=== PATIENT | female | born 1970 | race Caucasian/White ===

== ENCOUNTER 2021-06-06 12:47 | Outpatient (CLI) | payer OTHER, SELFPAY ==
--- NOTE | ~2021-06-06 | CT_ITS ---
EXAMINATION: CT diagnostic chest wo con DATE: 06/06/2021 13:17 INDICATION: Mediastinal mass, adenopathy, history of ovarian cancer TECHNIQUE: Computed tomography (CT) of the chest was performed without intravenous contrast. The dose -length product (DLP) was 357.19 mGy-cm. Automated exposure control and iterative reconstruction tech [employer] were employed. COMPARISON: 06/13/2018 FINDINGS: A 3.2 x 2.6 cm right lower paratracheal lymph node previously measured 2.8 x 1.9 cm. The ly mph node demonstrates a small amount of amorphous calcification. This is contiguous with the previous ly described precarinal lymph node. A partially calcified right hilar lymph node measures 1.9 x 1.7 c m, not significantly changed. No new thoracic lymphadenopathy is identified. There is a stable 3 mm n odule of the right upper lobe. No new pulmonary nodules are identified. The lungs are free of focal a irspace opacities. There is no pleural effusion or pneumothorax. The heart size is normal. There is m ild thoracic spondylosis. IMPRESSION: 1. Metastatic mediastinal lymphadenopathy with slight increase in size but overall very little change in the three year interval since the comparison examination. Slight decrease in metastatic right hil ar lymphadenopathy. Reviewed, dictated and finalized at location A. IMPRESSION: 1. Metastatic mediastinal lymphadenopathy with slight increase in size but over all very little change in the three year interval since the comparison examinat ion. Slight decrease in metastatic right hilar lymphadenopathy.
== END 2021-06-06 12:48 | disposition home or self-care (01) ==
LOC: ANHIMG 12:50
PROVIDERS: PCP Internal Medicine; Visit Provider Internal Medicine Medical Oncology
DX: R59.9 Enlarged lymph nodes, unspecified (principal); J98.59 Other diseases of mediastinum, not elsewhere classified; R91.1 Solitary pulmonary nodule
CPT/HCPCS: 71250

== ENCOUNTER 2021-06-16 14:31 | Outpatient (CLI) | payer OTHER, SELFPAY ==
--- NOTE | ~2021-06-16 | MM_ITS ---
EXAMINATION: MM screening henrik BI w macarena HISTORY: Screening TECHNIQUE: Craniocaudal and mediolateral oblique 3-D tomosynthesis images were obtained and synthetic 2-D images were generated. CAD analysis was submitted and interpreted. COMPARISON: Comparison to multiple prior studies sequentially, with oldest reviewed study dated 03/17. BREAST PARENCHYMAL COMPOSITION: There are scattered areas of fibroglandular density. FINDINGS: There is no evidence of suspicious mass, calcification, or architectural distortion to sugg est malignancy in either breast. There has been no suspicious interval change. IMPRESSION: 1. No mammographic evidence of malignancy. 2. Recommend routine screening mammography in one year. BI-RADS Category 1: Negative Reviewed, dictated and finalized at location A.
== END 2021-06-16 14:32 | disposition home or self-care (01) ==
PROVIDERS: PCP Internal Medicine Medical Oncology; Visit Provider Internal Medicine Medical Oncology
DX: Z12.31 Encounter for screening mammogram for malignant neoplasm of breast (principal)
CPT/HCPCS: 77063; 77067

== ENCOUNTER 2021-12-05 13:31 | Outpatient (CLI) | payer OTHER, SELFPAY ==
--- NOTE | ~2021-12-05 | CT_ITS ---
EXAMINATION:CT diagnostic chest w con DATE: 12/05/2021 14:04 INDICATION: Lymphadenopathy. Ovarian cancer. TECHNIQUE: Computed tomography (CT) of the chest was performed with 75 mL Omnipaque 350 intravenous c ontrast. Automated exposure control and iterative reconstruction technique were employed. The dose-le ngth product (DLP) was 370.41 mGy-cm. COMPARISON: Chest CT 06/06/2021 FINDINGS: The lungs demonstrate mild atelectasis. There is a 3 mm nodule in right upper lobe. No pleu ral effusion. There are nodules in the thyroid measuring up to 12 mm, likely not clinically significa nt. The heart size is normal. No pericardial effusion. There is partially calcified right hilar and r ight paratracheal lymphadenopathy. For example, a right paratracheal deshaun mass measures 3.7 x 2.4 cm , stable from 06/06/2021. There is diffuse hepatic steatosis. There is mild thoracic spondylosis. IMPRESSION: 1. Stable partially calcified mediastinal and right hilar lymphadenopathy, consistent with metastatic disease. Reviewed, dictated and finalized at location A. IMPRESSION: 1. Stable partially calcified mediastinal and right hilar lymphadenopathy, cons istent with metastatic disease.
== END 2021-12-05 13:32 | disposition home or self-care (01) ==
PROVIDERS: Visit Provider Internal Medicine Medical Oncology
DX: R59.9 Enlarged lymph nodes, unspecified (principal); Z85.43 Personal history of malignant neoplasm of ovary
CPT/HCPCS: 71260; Q9967

== ENCOUNTER 2022-06-15 10:19 | Outpatient (CLI) | payer OTHER, SELFPAY ==
--- NOTE | ~2022-06-15 | CT_ITS ---
EXAMINATION: CT diagnostic chest wo con DATE: 06/15/2022 10:50 INDICATION: History of ovarian cancer TECHNIQUE: Computed tomography (CT) of the chest was performed without intravenous contrast. The dose -length product (DLP) was 334.95 mGy-cm. Automated exposure control and iterative reconstruction tech nique were employed. COMPARISON: 12/05/2021 FINDINGS: There is a stable 3 mm nodule of the right upper lobe. There appear to be small, stable per ibronchial nodules in the right upper lobe on images 36 and 37 which measure 5 mm and 4 mm, respectiv nikhil. There is mild dependent atelectasis. No pleural effusion or pneumothorax. A 3.6 x 2.5 cm partial ly calcified right peritracheal lymph node mass is not significantly changed. Right hilar lymphadenop athy is also stable. There is mild thoracic spondylosis. IMPRESSION: 1. Stable mediastinal and right hilar lymphadenopathy, consistent with metastatic disease. Reviewed, dictated and finalized at location A. IMPRESSION: 1. Stable mediastinal and right hilar lymphadenopathy, consistent with metastat ic disease.
== END 2022-06-15 10:20 | disposition home or self-care (01) ==
PROVIDERS: Visit Provider Internal Medicine Medical Oncology
DX: Z85.43 Personal history of malignant neoplasm of ovary (principal); R59.0 Localized enlarged lymph nodes
CPT/HCPCS: 71250

== ENCOUNTER 2022-12-11 07:22 | Outpatient (CLI) | payer OTHER, SELFPAY ==
--- NOTE | ~2022-12-11 | CT_ITS ---
EXAMINATION: CT diagnostic chest w con DATE: 12/11/2022 07:54 INDICATION: Lymphadenopathy of the chest and axilla, history of ovarian cancer TECHNIQUE: Transaxial computed tomographic images of the chest were obtained after the administration of 75 cc of Omnipaque 350 intravenous contrast. The dose-length product (DLP) was 163.85 mGy-cm. Ite rative reconstruction was used. COMPARISON: 06/15/2022 FINDINGS: Again seen is a stable 3 mm nodule of the right upper lobe. The previously described peribr onchial nodules of the right upper lobe are stable (image 48). No pleural effusion or pneumothorax. T here is mild dependent atelectasis. Partially calcified right paratracheal and right hilar lymphadeno lisa is stable. The heart size is normal. There is mild thoracic spondylosis. Cholelithiasis is note d. IMPRESSION: 1. Stable mediastinal and right hilar lymphadenopathy, consistent with metastatic disease. Reviewed, dictated and finalized at location B. IMPRESSION: 1. Stable mediastinal and right hilar lymphadenopathy, consistent with metastat ic disease.
== END 2022-12-11 07:23 | disposition home or self-care (01) ==
PROVIDERS: Visit Provider Internal Medicine Medical Oncology
DX: R59.9 Enlarged lymph nodes, unspecified (principal); J98.59 Other diseases of mediastinum, not elsewhere classified
CPT/HCPCS: 71260; Q9967

== ENCOUNTER 2023-12-10 08:35 | Outpatient (CLI) | payer OTHER, SELFPAY ==
--- NOTE | ~2023-12-10 | CT_ITS ---
EXAMINATION:CT diagnostic chest w con DATE: 12/10/2023 09:09 INDICATION: Ovarian cancer. TECHNIQUE: Computed tomography (CT) of the chest was performed with 75 mL Omnipaque 350 intravenous c ontrast. Automated exposure control and iterative reconstruction technique were employed. The dose-le ngth product (DLP) was 209.74 mGy-cm. COMPARISON: Chest CT 12/11/2022, 12/05/21 FINDINGS: The lungs demonstrate mild atelectasis. No pleural effusion. Partially calcified right sarah r and mediastinal lymph nodes are noted. For example, a right paratracheal node measures 3.2 x 2.2 cm . There are nodules in the thyroid measuring up to 12 mm, likely not clinically significant. There is thymic hyperplasia in the anterior mediastinum. There is mild thoracic spondylosis. IMPRESSION: 1. Stable partially calcified mediastinal and right hilar lymphadenopathy, consistent with metastatic disease. Reviewed, dictated and finalized at location A. IMPRESSION: 1. Stable partially calcified mediastinal and right hilar lymphadenopathy, cons istent with metastatic disease.
== END 2023-12-10 08:36 | disposition home or self-care (01) ==
PROVIDERS: Visit Provider Internal Medicine Medical Oncology
DX: R59.9 Enlarged lymph nodes, unspecified (principal); Z85.43 Personal history of malignant neoplasm of ovary; J98.59 Other diseases of mediastinum, not elsewhere classified
CPT/HCPCS: 71260; Q9967

== ENCOUNTER 2024-12-08 07:35 | Outpatient (CLI) | payer OTHER, SELFPAY ==
--- NOTE | ~2024-12-08 | CT_ITS ---
Clinical Indication: Ovarian cancer CT Scan of the Chest with Contrast: Technique: Contiguous sections were acquired throughout the chest after intravenous administration of 100 cc of Omnipaque 350. Dose reduction technique was used on this scan by utilizing automated expos ure control and iterative reconstruction technique. The dose-length product (DLP) was 272.44 mGy-cm. COMPARISON: 12/10/2023 Findings: Stable enlarged mediastinal and right hilar lymph nodes, most prominent at the right paratracheal str ipe. No axillary lymphadenopathy. There is no filling defect in the pulmonary arterial tree to sugges t pulmonary embolus. There is no evidence of aortic dissection or aneurysm. There is no evidence of pleural or pericardial effusion. The lungs are clear. No pulmonary nodules or infiltrates are noted. Images through the upper abdomen reveal probable diffuse hepatic steatosis. Impression: Stable mediastinal and right hilar lymphadenopathy. Probable diffuse hepatic steatosis. Reviewed, dictated and finalized at [facility]. Impression: Stable mediastinal and right hilar lymphadenopathy. Probable diffuse hepatic steatosis.
--- OUTSIDE RECORDS SUMMARY | 2024-12-08 07:37 | XMS_ITS | Encounter Summary ---
Author Organization [facility] Address [address] [facility] [place] [address] Care Team Providers Care High School Computer Science Teacher Name Role Phone Claudia Leigh Primary Care Provider Reason for Referral * Consultation (Routine) - Closed Specialty Diagnoses / Procedures Referred By Opal hollins Referred To Contact Endocrinology Diagnoses Multinodular thyroid Anti-TPO antibodies present Thyromegaly Mediastinal adenopathy Claudia Leigh APRN-CNP [address] [place] [address] [place] [address] Referral ID Status Reason Start Date Expiration Date V isits Requested Visits Authorized [id number] Closed Specialty Services Required 07/12/2024 07/12/2025 1 1 ORATOR LOADER Encounter Details Date Type Department Care Team (Latest Contact Info) Description 07/12/2024 Transcribe Orders [facility] - Centralized Scheduling [address] [place] [address] Claudia Leigh APRN-CNP [address] [place], [place] [id number] Multinodular thyroid ; Anti-TPO antibodies present; Thyromegaly; Mediastinal adenopathy Social History Tobacco Use Types Packs/Day Years Used Date Smoking Tobacco: Never Alcohol Use Standard Drinks/Week Comments Yes 0 (1 standard drink = 0.6 oz pur e alcohol) rare Sex and Gender Information Value Date Recorded Sex Assigned at Not on file Gender Identity Not on file Sexual Orientation Not on file documented as of this encounter Plan of Treatment Scheduled Referrals Name Type Priority Associated Diagnoses Order Schedule AMB REFERRAL TO ENDOCRINOLOGY Outpatient Referral Routine Multinodular thyroid Anti-TPO antibodies present Thyromegaly Mediastinal adenopathy 1 Occurrences starting 07/12/2024 until 07/12/2025 documented as of this encounter Visit Diagnoses Diagnosis Multinodular thyroid- Primary Nontoxic multinodular goiter Anti-TPO antibodies present Other and unspecified nonspecific immunological findings Thyromegaly Goiter, unspecified Mediastinal adenopathy Enlargement of lymph nodes documented in this encounter Care Teams High [employer] Computer Science Teacher Relationship Specialty Start Date End Date Claudia Leigh, BURNISHING MACHINE OPERATOR-CONDUIT WORKER [address] [facility] [address] [place] [id number] PCP - General Nurse Practitioner 07/19/24 documented as of this encounter
--- OUTSIDE RECORDS SUMMARY | 2024-12-08 07:37 | XMS_ITS | Encounter Summary ---
Author Organization [facility] Address [address] [place] [address] Care Team Providers Care Manufacturing Systems Engineer Name Role Phone Claudia Leigh POWER SHOVEL MECHANIC-SURGICAL SPECIALIST Primary Care Provider Encounter Details Date Type Department Care Team (Late st Contact Info) Description 07/19/2024 Telephone [facility] - Endocrinology [address] [place] [address], [place] [id number] Jaskaran Pedro MD [address] [place] [address] [place], [place] [id number] Social History Tobacco Use Types Packs/Day Years Used Date Smoking Tobacco: Never Alcohol Use Standard Drinks/Week Comments Yes 0 (1 standard drink = 0.6 oz pur e alcohol) rare Sex and Gender Information Value Date Recorded Sex Assigned at Not on file Gender Identity Not on file Sexual Orientation Not on file documented as of this encounter Miscellaneous Notes * Telephone Encounter - Jamila Adams - 07/19/2024 12:02 PM CST Current Provider: Dr. Jaskaran Pedro Reason for Call: Ms. Cora Mcfarland has NEW PT Referral for: Diagnosis E04.2 (ICD-10-CM) - Multinodular thyroid R76.8 (ICD-10-CM) - Anti-TPO antibodies present E01.0 (ICD-10-CM) - Thyromegaly R59.0 (ICD-10-CM) - Mediastinal adenopathy Please advise. If she doesn't need scheduling w/ you after you peruse her chart, I will schedule. Thanks much for responding. Patient Call Back Number: [phone] R RECORD CLERK documented in this encounter Plan of Treatment Not on file documented as of this encounter Visit Diagnoses Not on filedocumented in this encounter Care Teams Manufacturing Systems Engineer Relationship Specialty Start Date End Date Claudia Leigh, LUNA-SURGICAL SPECIALIST [address] [place] [address] PCP - General Nurse Practitioner 07/19/24 documented as of this encounter
--- OUTSIDE RECORDS SUMMARY | 2024-12-08 07:37 | XMS_ITS | Referral Summary ---
Author Organization [facility] Address [address] [place] [address] Phone Care Team Providers Care Air Conditioning Manager Name Role Phone Darwin Colunga DO Unavailable [phone] Karis Tripp MD Unavailable Claudia Leigh NP Primary Care Provider [phone] Allergies No known active allergies Medications cholecalciferol , vitamin D3, 2,000 unit/drop drops Take by mouth. 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 Never 03/24/2023 Average Number of Drinks Not on file 023 Q3: How often do you have si x or more drinks on one occasion? 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 SHOP SUPERVISOR Gender Identity Not on file Sexual Orientation Not on file Last Filed Vital Signs Vital Sign Reading Time Taken Comments Blood Pressure 142/79 12/17/2023 10:21 AM CDT Pulse 60 12/17/2023 10:21 AM CDT Temperature 36.4 C (97.5 F) 12/17/2023 10:21 AM CDT Respiratory Rate 17 12/17/2023 10:2 1 AM CDT Oxygen Saturation 98% 12/17/2023 10: 21 AM CDT Inhaled Oxygen Concentration - - Weight 73.9 kg (162 lb 14.7 oz) 024 10:21 AM CDT Height 154.9 cm (5' 1 ) 12/18/2022 10:1 3 AM CDT Body Mass Index 30.78 12/18/2022 10:13 AM CDT Plan of Treatment Not on file Procedures Procedure Name Priority Date/Time Associated Diagnosis Comments COLONOSCOPY 03/24/2023 8:25 AM CDT from Last 3 Months or Most Recently Relevant to Health Maintenance Results * COLONOSCOPY (03/24/2023 8:25 AM CDT) Anatomical Region Laterality Modality Other Narrative Procedure Note Karis Tripp MD - 03/24/2023 8:25 AM CDT [facility] Patient Name: Cora Collins Procedure Date: 03/24/2023 8:25 AM Date of : 1970 Admit Type: Outpatient Age: 53 Gender: Female Attending MD: Karis Tripp M.D. Room: [facility] ENDOSCOPY ROOM 05 Note Status: Finalized Procedure: Colonoscopy Indications: Positive Cologuard test Referring MD: Providers: Karis Tripp M.D. Medicines: See the Anesthesia note for documentation of the administered medications Complications: No immediate complications. Estimated Blood Loss: Estimated blood loss was minimal. Procedure: The benefits, risks and alternatives of theprocedure and sedation were discussed and informed consentwas obtained. All questions were answered. Please referto the signed informed consent document in the medical record. The scope was passed under direct vision.The PCF-H180AL colonoscope was introduced through theanus and advanced to the cecum, identified byappendiceal orifice and ileocecal valve. The colonoscopy was performed without difficulty. The patient tolerated the procedure well. The quality of the bowel preparation was adequate. Findings: The digital rectal exam findings include a posterior based polyp. Two polyps were found in the cecum. The polyps were 5 mm in size.These polyps were removed with a hot biopsy forceps. Resection andretrieval were complete. A 10 mm polyp was found in the transverse colon. The polyp wasremoved with a hot biopsy forceps. Resection and retrieval were complete. A 25 mm polyp was found in the rectum. The polyp was removed with ahot snare. Resection and retrieval were complete. Impression: - A posterior based polyp. found on digital rectal exam. - Two 5 mm polyps in the cecum, removed with a hot biopsy forceps. Resected and retrieved. - One 10 mm polyp in the transverse colon, removed with a hot biopsy forceps. Resected andretrieved. - One 25 mm polyp in the rectum, removed with a hot snare. Resected and retrieved. Recommendation: - No aspirin, ibuprofen, naproxen, or other non-steroidal anti-inflammatory drugs for 5 days. - Repeat colonoscopy date to be determined after pending pathology results are reviewed for surveillance. Karis Tripp M.D. Karis Tripp M.D. 03/24/2023 9:09:10 AM . Number of Addenda: 0 Note Initiated On: 03/24/2023 8:25 AM Recognized by the [employer] for promoting quality in endoscopy Karis Tripp MD ENDOSCOPY PROCEDURES Final Resul t from Last 3 Months or Most Recently Relevant to Health Maintenance Insurance [facility] [place] [address] Care Teams Air Conditioning Manager Relationship Specialty Start Date End Date Claudia Leigh NP [address] [address] PCP - General Nurse Practitioner 12/17/23 Darwin Colunga DO [facility] [address] Medical Oncologist/Junior Technical Writer Hematology and Oncology 04/07/18 Karis Tripp MD [facility] [address] Consulting Physician General Surgery 01/22/23
--- OUTSIDE RECORDS SUMMARY | 2024-12-08 07:37 | XMS_ITS | Clinical Summary ---
Author Organization [facility] Address [address] [place] [address] Care Team Providers Care Rail Operator Name Role Phone Claudia Leigh PROFESSIONAL TUTOR-NAME PLATE STAMPING MACHINE OPERATOR Primary Care Provider Source Comments [facility],non-owned Affiliates and Associated Physician Practices is amultiple site organization consisting of ambulatory clinics and hospital sitesin [place], [place], [place] and [place]. This disclosure is being madepursuant to the Care Everywhere program and may not contain all information available regarding this patient. Last updated 18.[facility] Allergies No known active allergies Medications * Be aware that medications may not be up to date on this document. Alwaysverify current medications with the patient. Medication Sig Dispensed Refills Start Date End Date Status oxycodone-acetaminop hen (PERCOCET) 5-325 MG tablet Take 1-2 Tabs by mouth every 4 hours as needed for Pain. RUSS# [id number] 60 Tab 0 11/07/2010 Active ibuprofen (MOTRIN) 600 MG tablet Take 1 Tab by mouth every 6 hours as needed for Pain. 60 Tab 0 11/07/2010 Active docusate sodium (COLACE) 100 MG capsule Take 1 Cap by mouth 2 times daily. 120 Cap 1 11/07/2010 Active Nystatin & Diaper Rash Product 010889 UNIT/GM KIT 1 g by Apply externally route daily. 200 Kit grams 11/07/2010 Active Active Problems Problem Noted Date Diagnosed Date Shortness of breath 10/30/2010 Family History Medical History Relation Name Comments Cancer Father throat Cancer Paternal Grandfather Endometriosis Sister Relation Name Status Comments Father Paternal Grandfather Sister Social History Tobacco Use Types Packs/Day Years [...] Sign Reading Time Taken Comments Blood Pressure 136/75 11/07/2010 2:32 AM SUPERVISOR PAINTING DEPARTMENT Pulse 87 11/07/2010 2:32 AM SUPERVISOR PAINTING DEPARTMENT Temperature 37.1 C (98.8 F) 11/07/2010 2:32 AM SUPERVISOR PAINTING DEPARTMENT Respiratory Rate 20 11/07/2010 2:32 AM SUPERVISOR PAINTING DEPARTMENT Oxygen Saturation 93% 11/07/2010 2:32 AM SUPERVISOR PAINTING DEPARTMENT Inhaled Oxygen Concentration - - Weight 98.7 kg (217 lb 9 oz) 11/02/2010 1:24 PM SUPERVISOR PAINTING DEPARTMENT Height 157.5 cm (5' 2 ) 11/02/2010 1:24 PM SUPERVISOR PAINTING DEPARTMENT Body Mass Index 39.79 11/02/2010 1:24 PM SUPERVISOR PAINTING DEPARTMENT Plan of Treatment Health Maintenance Due Date Last Done Comments COLOGUARD (AGES 45-75) - COL ON CA SCREENING 1970 COLON MONITORING 1970 COLONOSCOPY - COLON CA SCREENING 1968 CT COLONOGRAPHY - COLON CA SCREENING 1970 Colorectal Cancer Screening 1970 FIT - COLON CA SCREENING 1970 FLEX SIG - COLON CA SCREENING 1970 PAP SMEAR 1970 HIV SCREENING 01/13/1983 HEPATITIS C SCREENING 01/09/1986 DTAP/TDAP/TD VACCINES (1 - Tdap) 01/13/1987 HEPATITIS B VACCINE (1 of 3 - 19+ 3-dose series) 01/13/1987 PNEUMOCOCCAL VACCINE 50+ (1 of 1 - PCV) 01/13/2018 ZOSTER VACCINE (1 of 2) 01/13/2018 COVID-19 VACCINE ( - 2023-2 5 season) 2024 DEPRESSION SCREENING 09/06/2024 MAMMOGRAM 02/17/2025 02/17/2023, 02/17/2023 INFLUENZA VACCINE (Season Ended) 2025 LIPID TESTING 07/04/2029 07/04/2024, 06/19/2022 HIB VACCINE Aged Out No longer eligi ble based on patient's age to complete this topic HPV VACCINE Aged Out No longer eligi ble based on patient's age to complete this topic MENINGOCOCCAL (Group B) VACCINE SHARED DECISION-MAKING Aged Out No longer eligible based on patient's age to complete this topic MENINGOCOCCAL GROUPS A/C/Y/W VACCINE Aged Out No longer eligible b ased on patient's age to complete this topic PNEUMOCOCCAL VACCINE Aged Out No long er eligible based on patient's age to complete this topic Advance Directives * Full Code (Latest Code Status on File) Date Activated Date Inactivated Comments 11/03/2010 6:35 PM 11/07/2010 11:57 PM * Full Code Date Activated Date Inactivated Comments 11/02/2010 12:31 PM 11/03/2010 6:35 PM * Full Code Date Activated Date Inactivated Comments 10/30/2010 9:21 PM 11/01/2010 1:39 AM Care Teams Rail Operator Relationship Specialty Start Date End Date Claudia Leigh, LUNA-NAME PLATE STAMPING MACHINE OPERATOR [address] [place] [id number] PCP - General Nurse Practitioner 07/19/24
--- OUTSIDE RECORDS SUMMARY | 2024-12-08 07:37 | XMS_ITS | Clinical Summary ---
Author Organization [facility] Address [address] [place] [address] Phone Care Team Providers Care Flat Lock Machine Operator Name Role Phone Darwin Colunga DO Unavailable Karis Tripp MD Unavailable Claudia Leigh NP Primary Care Provider [phone]- [phone] Allergies No known active allergies Medications cholecalciferol [...] Dates Next Due TD Preservative Free 03/18/2006 Surgical History Surgery Date Site/Laterality Comments HYSTERECTOMY OOPHORECTOMY COLONOSCOPY Medical History Medical History Date Comments Ovarian cancer (HCC) Social History Tobacco Use Types Packs/Day Years [...] on file Legal Sex Female 4:24 AM FINANCE OFFICER Gender Identity Not on file Sexual Orientation Not on file Obstetrics History Last Filed Vital Signs Vital Sign Reading [...] 12/18/2022 10:13 AM CDT Plan of Treatment Health Maintenance Due Date Last Done Comments Breast Cancer Screening-Mammogram 1970 Depression Screening 1970 Hepatitis C Screening 1970 Hepatitis B Screening 01/13/1986 Regular Well Visit/Exam 18-64 01/13/1986 DTaP/Tdap/Td Vaccine (1 - Tdap) 03/19/2006 6 Zoster Vaccine (1 of 2) 01/13/2018 Influenza Vaccine (#1) 2024 Colon Cancer Screening-Colonoscopy 03/24/2033 03/24/2023 Colon Cancer Screening-CT Colonography Discontinued 03/24/2023 Colon Cancer Screening-DNA Stool Discontinued 03/24/20 23 Colon Cancer Screening-FIT Discontinued 03/24/2023 Colon Cancer Screening-Sigmoidoscopy Discontinued 03/24/2023 Pneumococcal vaccine <65 Aged Out No longer eligible based on patient's age to complete this topic Procedures Procedure Name Priority Date/Time Associated Diagnosis Comments COLONOSCOPY 03/24/2023 8:25 AM CDT from Last 3 Months or Most Recently Relevant to Health Maintenance Results * COLONOSCOPY (03/24/2023 8:25 AM CDT) Anatomical Region Laterality Modality Other Narrative Procedure Note Karis Tripp MD - 03/24/2023 8:25 AM CDT [facility] ENDOSCOPY Patient Name: Cora Collins Procedure Date: 03/24/2023 8:25 AM Date of : 1970 Admit Type: Outpatient Age: 53 Gender: Female Attending MD: Karis Tripp M.D. Room: [facility] END[facility]COPY ROOM 05 Note Status: Finalized Procedure: [...] On: 03/24/2023 8:25 AM Recognized by the [employer] for promoting quality in endoscopy us Karis Tripp MD ENDOSCOPY PROCEDURES Final Resul t from Last 3 Months or Most Recently Relevant to Health Maintenance Insurance [facility] [place] [address] Care Teams Flat Lock Machine Operator Relationship Specialty Start Date End Date Claudia Leigh NP [address] [place] [id number] PCP - General Nurse Practitioner 12/17/23 Darwin Colunga DO [address] [place] [id number] Medical Oncologist/Computer Lab Para Professional Hematology and Oncology 04/07/18 Karis Tripp MD [address] [place] [address] [id number] Consulting Physician General Surgery 01/22/23
== END 2024-12-08 07:36 | disposition home or self-care (01) ==
PROVIDERS: Visit Provider Internal Medicine Medical Oncology
DX: R59.0 Localized enlarged lymph nodes (principal); Z85.43 Personal history of malignant neoplasm of ovary
CPT/HCPCS: 71260; Q9967